=== PATIENT | female | born 1960 | race American Indian/Alaskan Native ===

== ENCOUNTER 2019-04-24 22:23 | Emergency (ER) | payer OTHER ==
[2019-04-25] MEDS ORDERED: HYDROcodone/ACETAMINOPHEN 7.5-325MG TAB PO ONE (02:49)
[2019-04-25] MEDS ORDERED: IBUPROFEN 600 MG TAB PO ONE (02:49)
[2019-04-25] MEDS ORDERED: ONDANSETRON 4 MG ODT TAB PO ONE (02:49)
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
[2019-04-25 05:46] VITALS: BP 118/64
== END 2019-04-25 05:46 | disposition home or self-care (01) ==
LOC: ED 22:23
DX: M62.830 Muscle spasm of back (principal); M62.838 Other muscle spasm; M54.5 Low back pain; F17.200 Nicotine dependence, unspecified, uncomplicated; I10 Essential (primary) hypertension; Z79.899 Other long term (current) drug therapy; Z90.49 Acquired absence of other specified parts of digestive tract; Z98.51 Tubal ligation status; V49.49XA Driver injured in collision with other motor vehicles in traffic accident, initial encounter; Y92.410 Unspecified street and highway as the place of occurrence of the external cause; Y93.89 Activity, other specified; Y99.8 Other external cause status
CPT/HCPCS: 72125; 72131; Q0162